=== PATIENT | female | born 1955 ===

== ENCOUNTER 2018-04-04 15:19 | Emergency (ER) | payer BC ==
[2018-04-04 15:28] VITALS: BMI 35.5
--- NOTE | 2018-04-04 15:46 | ED PDOC ---
Arrival/HPI - General Time Seen by Provider: 04/04/18 15:23 Historian: Patient - History of Present Illness Narrative History of Present Illness (Text): 04/04/18 15:41 62yo female with past medical history of hypertension, Diabetes, chronic lower back pain with 3herniated disc on her lower back present with complaint of left sided upper chest and back pain x 2weeks. States she is currently under the care of a pain management for her back and suppose to take her medication every 6hrs, but have not because she is not sure of the cause of the pain. She saw her PMD for the pain and was referred to the Emergency department. She notes worsening pain with palpation of the area and deep inspiration. Denies cough, nausea, vomiting, abdominal pain, dizziness, shortness of breath, diaphoresis, LE edema, calf pain. Past Medical History - Provider Review Nursing Documentation Reviewed: Yes - Infectious Disease Hx of Infectious Diseases: None - Tetanus Immunization Tetanus Immunization: Unknown - Cardiac Hx Hypertension: Yes - Pulmonary Hx Asthma: Yes Hx Bronchitis: Yes Hx Chronic Obstructive Pulmonary Disease (COPD): Yes Hx Emphysema: Yes Hx Pneumonia: Yes Hx Sleep Apnea: Yes - Neurological Hx Alzheimer's Disease: No Hx Dementia: No (pt denies) Hx Migraine: No Hx Multiple Sclerosis: No Hx Parkinson's Disease: No Hx Seizures: No Hx Transient Ischemic Attacks (TIA): No - HEENT Hx HEENT Disorder: Yes - Renal Hx Renal Disorder: No Hx Kidney Stones: No - Endocrine/Metabolic Hx Hyperthyroidism: No Hx Hypothyroidism: No - Hematological/Oncological Hx Anemia: Yes - Integumentary Hx Dermatological Disorder: No - Musculoskeletal/Rheumatological Hx Arthritis: Yes - Gastrointestinal Hx Gall Bladder Disease: Yes Hx Gastritis: Yes - Genitourinary/Gynecological Hx Sexually Transmitted Diseases: No - Psychiatric Hx Anxiety: Yes Hx Substance Use: No - Surgical History Hx Cholecystectomy: Yes - Anesthesia Hx Anesthesia: Yes Hx Anesthesia Reactions: No - Suicidal Assessment Feels Threatened In Home Enviroment: No Family/Social History - Physician Review Nursing Documentation Reviewed: Yes Family/Social History: Unknown Family HX Smoking Status: Never Smoked Hx Alcohol Use: No Hx Substance Use: No Hx Substance Use Treatment: No Allergies/Home Meds Allergies/Adverse Reactions: Allergies codeine Allergy (Verified 03/20/18 23:05) ITCHING hydromorphone [From Dilaudid] Allergy (Verified 03/20/18 23:05) ITCHING Home Medications: Home Meds Medication Instructions Recorded Confirmed Zolpidem [Ambien] 10 mg PO HS 08/16/15 03/20/18 Esomeprazole Magnesium [Nexium] 40 mg PO DAILY 09/26/15 03/20/18 HYDROmorphone [Dilaudid] 4 mg PO Q6 10/24/15 03/20/18 Insulin Lispro [Humalog] 30 unit SC BID 10/24/15 03/20/18 Metoclopramide [Reglan] 10 mg PO BID PRN 10/24/15 03/20/18 Hydroxyzine HCl 25 mg PO Q6 09/16/17 03/20/18 cloNIDine [Catapres] 0.1 mg PO Q6H 01/04/18 03/20/18 hydroCHLOROthiazide [Microzide] 12.5 mg PO DAILY 01/04/18 03/20/18 Review of Systems - Physician Review All systems were reviewed & negative as marked: Yes - Review of Systems Constitutional: Normal Eyes: Normal ENT: Normal Respiratory: Normal Cardiovascular: Chest Pain. absent: Palpitations, Edema, Calf Pain, BOO, Orthopnea Gastrointestinal: Normal Genitourinary Female: Normal Musculoskeletal: Back Pain Skin: Normal Neurological: Normal Endocrine: Normal Hemo/Lymphatic: Normal Psychiatric: Normal Physical Exam Vital Signs Reviewed: Yes Vital Signs Temp Pulse Resp BP Pulse Ox 04/04/18 19:04 98.6 F 82 18 160/79 H 98 04/04/18 17:19 98.3 F 78 18 156/64 H 98 04/04/18 15:27 98.7 F 94 H 19 163/85 H 95 Temperature: Afebrile Blood Pressure: Normal Pulse: Regular Respiratory Rate: Normal Appearance: Positive for: Well-Appearing, Non-Toxic, Comfortable Pain Distress: None Mental Status: Positive for: Alert and Oriented X 3 - Systems Exam Head: Present: Atraumatic, Normocephalic Pupils: Present: PERRL Extroacular Muscles: Present: EOMI Conjunctiva: Present: Normal Mouth: Present: Moist Mucous Membranes Neck: Present: Normal Range of Motion Respiratory/Chest: Present: Clear to Auscultation, Good Air Exchange, Tender to Palpation (LEft sided upper chest wall). No: Respiratory Distress, Accessory Muscle Use, Wheezes, Decreased Breath Sounds, Rales, Retracting, Rhonchi, Tachypneic Cardiovascular: Present: Regular Rate and Rhythm, Normal S1, S2. No: Murmurs Abdomen: No: Tenderness, Distention, Peritoneal Signs Back: Present: Paraspinal Tenderness (LEft sided parathoracic tenderness). No: Midline Tenderness, Pain with Leg Raise Upper Extremity: Present: Normal Inspection. No: Cyanosis, Edema Lower Extremity: Present: Normal Inspection. No: Edema Neurological: Present: GCS=15, CN II-XII Intact, Speech Normal Skin: Present: Warm, Dry, Normal Color. No: Rashes Psychiatric: Present: Alert, Oriented x 3, Normal Insight, Normal Concentration Medical Decision Making ED Course and Treatment: 04/05/18 01:17 PT presneted for stated history. Her pain was reproducible. She was hemodynamically stable. Her pain was controlled in Emergency department . She was ambulatory and neurologically intact. Lab was ordered and reviewed, unremarkable. Thoracic spine CT COMPARISON: No relevant prior studies available. FINDINGS: VERTEBRAE: T5 focal sclerosis may be bone island. DISCS/SPINAL CANAL/NEURAL FORAMINA: Mild degenerative changes through the thoracic spine. No spinal canal stenosis. SOFT TISSUES: Small hiatal hernia. Minimal dependent atelectasis. IMPRESSION: No acute findings. Result was DW the pt. she sees a pain management, Dr. Ashby and takes Dilaudid at home. She was advised to f/u with Her PMD and pain management. Lidoderm patch rx was given. Case was Dr. Gutierrez who referred pt to Emergency department and he agreed with the plan. - Lab Interpretations Lab Results: 04/04/18 16:45 04/04/18 16:45 Lab Results 04/04/18 16:45: PT 11.0, INR 0.97, APTT 39.4 H, D-Dimer, Quantitative 138 04/04/18 16:45: Sodium 138, Potassium 4.0, Chloride 100, Carbon Dioxide 26, Anion Gap 17, BUN 11, Creatinine 0.5 L, Est GFR ( Amer) > 60, Est GFR ( Non-Af Amer) > 60, Random Glucose 230 H, Calcium 10.1, Magnesium 1.6 L, Total Bilirubin 0.6, AST 33, ALT 51, Alkaline Phosphatase 119, Lactate Dehydrogenase 340, Total Creatine Kinase 82, Troponin I < 0.01, Total Protein 7.8, Albumin 4.5 , Globulin 3.3, Albumin/Globulin Ratio 1.4 04/04/18 16:45: WBC 8.3 D, RBC 5.07, Hgb 14.2, Hct 40.8, MCV 80.5, MCH 28.0, MCHC 34.8, RDW 12.9, Plt Count 283, MPV 10.8, Gran % 65.9, Lymph % (Auto) 27.0, Dougherty % (Auto) 5.3, Eos % (Auto) 1.6, Baso % (Auto) 0.2, Gran # 5.49, Lymph # ( Auto) 2.3, Dougherty # (Auto) 0.4, Eos # (Auto) 0.1, Baso # (Auto) 0.02 - RAD Interpretation Radiology Orders: 04/04/18 15:36 THORACIC SPINE W/O CONT [CT] Stat - Medication Orders Current Medication Orders: Discontinued Medications Dexamethasone (Decadron Inj) 10 mg IVP STAT STA Stop: 04/04/18 15:38 Last Admin: 04/04/18 16:52 Dose: 10 mg IVP Administration Document 04/04/18 16:52 RR (Rec: 04/04/18 16:53 RR [id number]) Charges for Administration # of IVP Administrations 1 Diazepam (Valium) 5 mg PO ONCE ONE PRN Reason: Protocol Stop: 04/04/18 15:38 Last Admin: 04/04/18 16:52 Dose: 5 mg Ketorolac Tromethamine (Toradol) 30 mg IVP STAT STA Stop: 04/04/18 15:38 Last Admin: 04/04/18 16:53 Dose: 30 mg MAR Pain Assessment Document 04/04/18 16:53 RR (Rec: 04/04/18 16:53 RR [id number]) Pain Reassessment Is this a pain reassessment? Yes Sleep Is patient sleeping during reassessment? No IVP Administration Document 04/04/18 16:53 RR (Rec: 04/04/18 16:53 RR [id number]) Charges for Administration # of IVP Administrations 1 Morphine Sulfate (Morphine) 4 mg IVP STAT STA Stop: 04/04/18 18:41 Last Admin: 04/04/18 18:45 Dose: 4 mg MAR Pain Assessment Document 04/04/18 18:45 EWO (Rec: 04/04/18 18:46 [facility] [id number]) Pain Reassessment Is this a pain reassessment? No Sleep Is patient sleeping during reassessment? No Presence of Pain Presence of Pain Yes Pain Scale Used Pain Scale Used Numeric Location Pain Location Body Site Back Description Description Constant Intensity of Pain at present 31 IVP Administration Document 04/04/18 18:45 EWO (Rec: 04/04/18 18:46 [facility] [id number]) Charges for Administration # of IVP Administrations 1 Disposition/Present on Arrival - Present on Arrival Any Indicators Present on Arrival: No History of DVT/PE: No History of Uncontrolled Diabetes: No Urinary Catheter: No History of Decub. Ulcer: No History Surgical Site Infection Following: None - Disposition Have Diagnosis and Disposition been Completed?: Yes Diagnosis: Chronic low back pain Disposition: HOME/ ROUTINE Disposition Time: 18:45 Patient Plan: Discharge Condition: STABLE Discharge Instructions (ExitCare): Chronic Pain (DC) Additional Instructions: Follow up with your doctor/Pain management Return to Emergency department for new symptoms Prescriptions: Lidocaine 5% [Lidoderm] 1 each TP BID #10 patch Referrals: Epifanio Gutierrez MD [Primary Care Provider] - Follow up with primary Forms: Cydan (Tajik)
[2018-04-04 17:18] LABS: BASO # 0.02 K/mm3 (0.0-2.0); BASO % 0.2 % (0.0-3.0); EOS # 0.1 (0.0-0.7); EOS % 1.6 % (1.5-5.0); GRAN # 5.49 (1.4-6.5); GRAN % 65.9 % (50.0-68.0); HEMOGLOBIN 14.2 g/dL (12.0-16.0); LYMPH # 2.3 (1.2-3.4); MEAN CELL VOLUME 80.5 fl (80.0-105.0); MEAN CORPUSCULAR HGB CONC 34.8 g/dl (31.0-37.0); MEAN PLATELET VOLUME 10.8 fl (7.0-11.0); MONO # 0.4 (0.1-0.6); MONO % 5.3 % (1.0-6.0); RBC 5.07 10^6/uL (3.5-6.1); RED CELL DISTRIBUTION WIDTH 12.9 % (11.5-14.5); WHITE BLOOD COUNT 8.3 10^3/ul (4.5-11.0)
[2018-04-04 17:30] LABS: INR 0.97 (0.93-1.08); PARTIAL THROMBOPLASTIN TIME 39.4 Seconds (25.1-36.5)
[2018-04-04 17:31] LABS: ALB/GLOB RATIO 1.4 (1.1-1.8); ALBUMIN 4.5 g/dL (3.0-4.8); ALT/SGPT 51 U/L (7-56); AST/SGOT 33 U/L (14-36); BLOOD UREA NITROGEN 11 mg/dL (7-21); CALCIUM 10.1 mg/dL (8.4-10.5); GFR AFRICAN-AMERICAN > 60; GFR NON-AFRICAN AMERICAN > 60
[2018-04-04 17:41] LABS: TROPONIN I < 0.01 ng/mL
[2018-04-04] MEDS ORDERED: Morphine 4 mg/ml ISec IVP STA (18:40)
[2018-04-04 19:04] VITALS: RESP 18; O2SAT 98
[2018-04-04 19:05] VITALS: BP 160/79; PULSE 82; TEMP 98.6
--- NOTE | 2018-04-05 10:05 | CT ---
Date of service: 04/04/2018 PROCEDURE: CT Thoracic Spine without contrast HISTORY: Back Pain. No history of recent/ related trauma provided COMPARISON: None. TECHNIQUE: Axial computed tomography images were obtained of the thoracic spine without intravenous contrast. Coronal and sagittal reformatted images were created and reviewed. Radiation dose: Total exam DLP = 1293.85 mGy-cm. This CT exam was performed using one or more of the following dose reduction techniques: Automated exposure control, adjustment of the mA and/or kV according to patient size, and/or use of iterative reconstruction technique. FINDINGS: VERTEBRAE: Sclerotic focus T5 vertebral body likely benign perhaps bone island. No fracture. Normal alignment. DISCS/SPINAL CANAL/NEURAL FORAMINA: Within the limits of the CT technique, no disc herniation seen. No central canal or neural foraminal stenosis.. PARASPINAL SOFT TISSUES: Unremarkable. OTHER FINDINGS: Unremarkable. IMPRESSION: No significant or acute findings to account for/ related to the clinical presentation. Additional benign and/or incidental findings described above. Concordant results (preliminary interpretation) provided by [employer]. Procedure Completed: 17:32. Preliminary ([facility]) Report: Dictated and Authenticated: 17:54. Final Interpretation: 10:03. April 05, 2018.
--- NOTE | 2018-04-05 12:57 | CARD ---
APPROVED REPORT Date of service: 04/04/2018 EKG Measurement Heart [id number] <Conclusion> Normal sinus rhythm Possible Inferior infarct, age undetermined Abnormal ECG
== END 2018-04-04 19:04 | disposition home or self-care (01) ==
LOC: ED 15:19
DX: M54.5 Low back pain (principal); G89.29 Other chronic pain; I10 Essential (primary) hypertension; E11.9 Type 2 diabetes mellitus without complications; J44.9 Chronic obstructive pulmonary disease, unspecified
CPT/HCPCS: 72128; 80053; 82550; 83615; 83735; 84484; 85025; 85378; 85610; 85730; 93005; 96374; 96375; 99283; J1100; J1885; J2270